=== PATIENT | male | born 1995 | race Caucasian/White ===

== ENCOUNTER 2017-04-02 22:31 | Emergency (ER) | payer OTHER ==
[~2017-04-02] VITALS: Ht 172.7 cm; Wt 85.1 kg
[~2017-04-02 22:31] MED LIST: PROAIR RESPICL90 MCG IH
[2017-04-03 00:23] LABS: CHLORIDE 104 mEq/L (99-109); POTASSIUM 3.6 mEq/L (3.7-5.4); SODIUM 138 mEq/L (136-147)
[2017-04-03 00:26] LABS: ANION GAP 10 MEQ/L (2-14)
[2017-04-03 00:27] LABS: TOTAL BILIRUBIN 1.8 mg/dL (0.0-1.0)
[2017-04-03 00:28] LABS: ALKALINE PHOSPHATASE 308 IU/L (3-129)
[2017-04-03 00:29] LABS: GFR ESTIMATE (CALCULATED) > 59 mL/min/
[2017-04-03 00:30] LABS: UREA NITROGEN (BUN) 6 mg/dL (9-23)
[2017-04-03 00:37] LABS: INTERNAL CONTROL VALID? YES; MONOSPOT (MONONUCLEOSIS SEROL) POSITIVE
[2017-04-03 00:44] LABS: GLUCOSE 90 mg/dL (70-99)
[2017-04-03 01:14] LABS: ADD MIUA? YES; BILIRUBIN SMALL; BLOOD NEGATIVE; COLOR AMBER ((YELLOW)); GLUCOSE (STRIP) NEGATIVE; KETONES NEGATIVE; LEUKOCYTES NEGATIVE; NITRITE NEGATIVE; PROTEIN (STRIP) 30; SPECIFIC GRAVITY 1.017 (1.000-1.030)
[2017-04-03 01:20] LABS: BACTERIA NONE SEEN /HPF; EPITHELIAL CELLS NONE SEEN /HPF; MUCUS TRACE /LPF; RED BLOOD CELLS 0-5 /HPF (0-5); WHITE BLOOD CELLS 0-5 /HPF (0-5)
[2017-04-03] MEDS ORDERED: NORCO 5/3251 TABLET PO (01:47)
[2017-04-03] MEDS ORDERED: PREDNISONE20 MG PO (01:47)
[2017-04-03] MEDS ORDERED: MOTRIN800 MG PO (01:47)
[2017-04-03 01:56] VITALS: BP 115/55
== END 2017-04-03 01:57 | disposition home or self-care (01) ==
LOC: EME 22:31
PROVIDERS: Physician Assistant
DX: J02.0 Streptococcal pharyngitis (principal); B27.90 Infectious mononucleosis, unspecified without complication
CPT/HCPCS: 80053; 81003; 86308; 99281; 99285; J0561; J1100; J1885; J7030